=== PATIENT | male | born 1950 | race Caucasian/White ===

== ENCOUNTER 2018-08-13 15:07 | Emergency (ER) | payer SELFPAY ==
--- NOTE | 2018-08-13 15:13 | PDOC ---
Rapid Medical Evaluation Time Seen by Provider: 08/13/18 15:09 Medical Evaluation: 08/13/18 15:09 I have performed a brief in-person evaluation of this patient. The patient presents with a chief complaint of: neck pain and dizziness s/p head trauma 4 days ago Pertinent physical exam findings: PERRLA. CN II-XII grossly intact. Gait steady I have ordered the following: deferred to FT provider The patient will proceed to the ED for further evaluation. Discharge Disposition - Diagnosis Dizziness - Referrals - Patient Instructions - Post Discharge Activity
[2018-08-13 15:16] VITALS: BP 148/72; PULSE 90; TEMP 98.1; BMI 26.6
--- NOTE | 2018-08-13 15:25 | PDOC ---
History of Present Illness - General Chief Complaint: Lightheaded Stated Complaint: LIGHTHEADED Time Seen by Provider: 08/13/18 15:09 History Source: Patient Exam Limitations: No Limitations - History of Present Illness Initial Comments: 08/13/18 16:15 Patient is a 68 year old male with history of ADHD on (adderral) presents with complaint of lightheadedness. He endorses that he hit the right side of his head 4 days ago along a ladder that was stationary along the side of his truck. Patent denies loss of consciousness at that time. He admits lightheadedness has been worsening, however he is still able to walk without cane or walker. He endorses associated neck stiffness, and and posterior rib tightness with movement, although he denies any trauma to those areas. He states that he has not taken his ADHD medications for past few days as he ran out. He denies subjective fevers, chills, shortness of breath, chest pain, palpitations, abdominal pain, nausea, vomiting, diarrhea, melena, hematochezia, dysuria, hematuria. PMH: ADHD PSH: Left meniscal tear (30 years old), testicular torsion (15 years old) Family history: Mother 91 years old, diabetes mellitus. Father 92 years old, PVD, diabetes mellitus. No history of OR, stroke, or cancer. Social: Lives in [place] with his daughter. 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 Former smoker 1/2 PPD for 20 years. Quit 20 years ago. 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 Denies illicit drug use. At [facility], ambulates without cane or walker. Past History - Past Medical History Allergies/Adverse Reactions: Allergies Allergy/AdvReac Type Severity Reaction Status Date / Time No Known Allergies Allergy Verified 08/13/18 15:09 Psychiatric Problems: Yes (ADHD) - Surgical History Orthopedic Surgery: Yes (left meniscus tear repaired at 30 years old) Other Surgical History: 08/13/18 16:22 testicular torsion repaired at 15 years old - Family Disease History Family Disease History: Diabetes: Father (PVD), Mother, Other: Father - Immunization History Immunization Up to Date: Yes - Suicide/Smoking/Psychosocial Hx Smoking Status: No (Former smoker) Smoking History: Former smoker Have you smoked in the past 12 months: No If you are a former smoker, when did you quit?: 20 years ago Hx Alcohol Use: Yes (Sober for past 15 years) Drug/Substance Use Hx: No Substance Use Type: None Review of Systems - Review of Systems Is the patient limited Maori proficient: No Constitutional: Yes: Other (endporses lightheadedness). No: Chills, Diaphoresis , Fever, Malaise, Night Sweats HEENTM: No: Eye Pain, Blurred Vision, Recent change in vision, Double Vision, Tinnitus, Hearing Loss, Throat Pain, Throat Swelling Respiratory: No: Shortness of Breath, Stridor, Wheezing, Hemoptysis Cardiac (ROS): Yes: Lightheadedness. No: Chest Pain, Palpitations, Syncope ABD/GI: No: Blood Streaked Bowels, Constipated, Diarrhea, Nausea, Rectal Bleeding, Tarry Stools : No: Burning, Dysuria, Discharge, Frequency, Hematuria Musculoskeletal: Yes: Muscle Pain (neck stiffness, back stiffness) Integumentary: No: Bruising, Flushing, Rash Neurological: Yes: Unsteady Gait. No: Headache, Paresthesia, Seizure, Tremors *Physical Exam - Vital Signs Last Vital Signs Temp Pulse Resp BP Pulse Ox 98.1 F 90 18 148/72 98 08/13/18 15:11 08/13/18 15:11 08/13/18 15:11 08/13/18 15:11 08/13/18 15:11 - Physical Exam General Appearance: Yes: Appropriately Dressed. No: Apparent Distress, Disheveled HEENT: positive: EOMI, JUVE, Pharynx Normal, Other. negative: Scleral Icterus ( R), Scleral Icterus (L), Pharyngeal Erythema, Tonsillar Exudate, Nasal Congestion, Rhinorrhea Neck: positive: Other (posterior neck tightness) Respiratory/Chest: positive: Lungs Clear. negative: Respiratory Distress, Accessory Muscle Use, Crackles, Rales, Stridor, Wheezing Cardiovascular: positive: S1, S2. negative: Murmur Gastrointestinal/Abdominal: positive: Normal Bowel Sounds, Soft. negative: Distended, Rebound, Tenderness Musculoskeletal: positive: Other (No point tenderness over neck, or spine) Extremity: positive: Normal Range of Motion. 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 Head CT noncontrast- rule out chronic subdural hematoma, any calvarial fractures EKG to rule out Afib, arrhythmia CBC, CMP to rule out any anemia, electrolyte abnormalities 08/13/18 17:21 CT head negative for intracranial bleeding. CBC,CMP unremarkable. EKG shows sinus rhythm with premature atrial complexes at 89BPM. No ischemic changes. 08/13/18 17:39 Patient is stable for discharge home. *DC/Admit/Observation/Transfer Diagnosis at time of Disposition: Dizziness - Discharge Dispostion Disposition: HOME Condition at time of disposition: Stable Decision to Admit order: No - Referrals - Patient Instructions Additional Instructions: You were admitted to the hospital due to complaint of lightheadedness. You had a CT scan of your head which showed no bleeding. Your EKG showed some premature heat beats (premature supraventricular complexes) ; you will follow up with your primary care physician. You are being discharged home. It is important that you follow up with your primary care physician within one - two days after discharge. Continue taking your home medications as directed. Return to the nearest Emergency Department if you experience worsening symptoms , subjective fevers, chills, shortness of breath, chest pain, palpitations, abdominal pain, nausea, vomiting, worsening lightheadedness, falls, trauma, any loss of consciousness. - Post Discharge Activity
[2018-08-13 16:46] LABS: HEMATOCRIT 44.4 % (35.4-49); HEMOGLOBIN 14.5 GM/dL (11.7-16.9); MCH 29.2 pg (25.7-33.7); MCHC 32.8 g/dl (32.0-35.9); MEAN CELL VOLUME 89.2 fl (80-96); MEAN PLT VOLUME 8.2 fl (7.5-11.1); PLATELET COUNT 234 K/MM3 (134-434); RBC 4.97 M/mm3 (4.00-5.60); RDW 15.1 % (11.9-15.9); WHITE BLOOD COUNT 10.8 K/mm3 (4.0-10.0)
[2018-08-13 17:22] LABS: ALBUMIN 3.7 g/dl (3.4-5.0); ALK PHOS 125 U/L (45-117); ANION GAP 8 MMOL/L (8-16); BILIRUBIN,TOTAL 0.5 mg/dL (0.2-1); BLOOD UREA NITROGEN 13 mg/dL (7-18); CALCIUM 9.3 mg/dL (8.5-10.1); CHLORIDE 103 mmol/L (98-107); CO2 29 mmol/L (21-32); CREATININE 0.8 mg/dL (0.55-1.3); GLUCOSE,RANDOM 98 mg/dL (74-106); SGOT/AST 12 U/L (15-37); SGPT/ALT 19 U/L (13-61); SODIUM 139 mmol/L (136-145); TOT PROT 7.3 g/dl (6.4-8.2)
--- NOTE | 2018-08-14 08:29 | EKG ---
Test Reason : Blood Pressure : / mmHG Vent. Rate : 089 BPM Atrial Rate : 089 BPM P-R Int : 168 ms QRS Dur : 078 ms QT Int : 356 ms P-R-T Axes : 061 047 074 degrees QTc Int : 433 ms SINUS RHYTHM WITH PREMATURE SUPRAVENTRICULAR COMPLEXES OTHERWISE NORMAL ECG NO PREVIOUS ECGS AVAILABLE Confirmed by ROCCO CESPEDES, GAYLA ([id number]) on 08/14/2018 8:28:35 AM Referred By: Confirmed By:GAYLA VALIENTE MD
== END 2018-08-13 17:49 | disposition home or self-care (01) ==
LOC: JER 15:07
DX: R42 Dizziness and giddiness (principal); W22.8XXA Striking against or struck by other objects, initial encounter; Y93.89 Activity, other specified; Y92.89 Other specified places as the place of occurrence of the external cause; Y99.8 Other external cause status; F90.9 Attention-deficit hyperactivity disorder, unspecified type
CPT/HCPCS: 36415; 70450-TC; 80053; 85027; 93005; 93010; 99282-25